=== PATIENT | male | born 1985 | race African-American/Black ===

== ENCOUNTER 2022-01-27 11:09 | Emergency (ER) | payer SELFPAY ==
[~2022-01-27] VITALS: Ht 177.8 cm; Wt 100.0 kg
[2022-01-27 11:20] VITALS: BP 138/56
[2022-01-27] MEDS ORDERED: KETOROLAC 60MG/2ML VIAL IM ONE (11:45)
[2022-01-27] MEDS ORDERED: MELO-105 MT (12:22)
[2022-01-27] MEDS ORDERED: CYCL10TA21 MT (12:22)
== END 2022-01-27 13:09 | disposition home or self-care (01) ==
LOC: ER 13:00
DX: M54.16 Radiculopathy, lumbar region (principal)
CPT/HCPCS: 96372; 99283; J1885

== ENCOUNTER 2024-11-13 22:50 | Emergency (ER) | payer SELFPAY ==
[~2024-11-13] VITALS: Ht 185.4 cm; Wt 73.8 kg
[~2024-11-13 22:50] MED LIST: CYCL10TA21 MT; MELO-105 MT
[2024-11-13 22:52] VITALS: O2SAT 98
[2024-11-14] MEDS: LIDOCAINE HCL 1% 20ML VIAL INFIL ONE (00:15)
[2024-11-14] MEDS: BACITRACIN ZINC OINT UDPKT TOP ONE (00:30)
[2024-11-14] MEDS: FLUORESCEIN SODIUM 1MG/STRIP RIGHTEYE ONE (00:31)
[2024-11-14] MEDS: HYDROCODONE/ACETAMINOPHEN 5/325MG TABLET PO ONE (00:31)
[2024-11-14] MEDS: TETANUS, DIPHTHERIA, PERTUSSIS VAC/PF 0.5ML (>10YR OLD) IM ONE (00:31)
[2024-11-14] MEDS ORDERED: CETI10CA2 MT (03:59)
[2024-11-14] MEDS ORDERED: AMOX1TAB16 MT (03:59)
[2024-11-14] MEDS ORDERED: IBUP-2029 MT (03:59)
[2024-11-14] MEDS ORDERED: HYDR-4001 MT (03:59)
[2024-11-14] MEDS ORDERED: BO1 TP (03:59)
[2024-11-14 04:26] VITALS: BP 133/78; PULSE 96; RESP 18; TEMP 36.8; O2SAT 98
== END 2024-11-14 04:26 | disposition home or self-care (01) ==
LOC: ER 22:50
DX: S02.31XA Fracture of orbital floor, right side, initial encounter for closed fracture (principal); Z79.899 Other long term (current) drug therapy; X58.XXXA Exposure to other specified factors, initial encounter; Y93.89 Activity, other specified; Y92.89 Other specified places as the place of occurrence of the external cause; Y99.8 Other external cause status
CPT/HCPCS: 99285; 70450; 70486; 72125; 90715; 12011; 90471; J2003

== ENCOUNTER 2024-11-16 15:05 | Emergency (ER) | payer SELFPAY ==
[~2024-11-16] VITALS: Ht 185.4 cm; Wt 68.0 kg
[~2024-11-16 15:05] MED LIST changes: +AMOX1TAB16 MT; +BO1 TP; +CETI10CA2 MT; +HYDR-4001 MT; +IBUP-2029 MT
[2024-11-16 15:11] VITALS: O2SAT 100
[2024-11-16 15:31] VITALS: BP 130/73; PULSE 96; RESP 17; TEMP 36.8; O2SAT 100
== END 2024-11-16 16:55 | disposition home or self-care (01) ==
LOC: ER 15:05
DX: S01.112A Laceration without foreign body of left eyelid and periocular area, initial encounter (principal); Z79.899 Other long term (current) drug therapy; X58.XXXD Exposure to other specified factors, subsequent encounter
CPT/HCPCS: 99281

== ENCOUNTER 2024-11-20 10:23 | Emergency (ER) | payer SELFPAY ==
[~2024-11-20] VITALS: Ht 185.4 cm; Wt 73.0 kg
[~2024-11-20 10:23] MED LIST changes: +IBUP-1455 MT; -IBUP-2029 MT
[2024-11-20 10:34] VITALS: BP 132/77; TEMP 36.7; O2SAT 99
[2024-11-20 10:35] VITALS: PULSE 72; RESP 20; O2SAT 99
[2024-11-20] MEDS ORDERED: BO1 TP (13:17)
== END 2024-11-20 13:40 | disposition home or self-care (01) ==
LOC: ER 10:23
DX: S05.32XD Ocular laceration without prolapse or loss of intraocular tissue, left eye, subsequent encounter (principal); Z79.1 Long term (current) use of non-steroidal anti-inflammatories (NSAID); X58.XXXD Exposure to other specified factors, subsequent encounter
CPT/HCPCS: 99282; Z7610